=== PATIENT | female | born 1995 | race Two or more races ===

== ENCOUNTER 2021-05-13 16:31 | Emergency (ER) | payer OTHER ==
[~2021-05-13] VITALS: Ht 157.5 cm; Wt 54.4 kg
== END 2021-05-13 22:41 | disposition home or self-care (01) ==
LOC: ER 16:31
DX: O20.8 Other hemorrhage in early pregnancy (principal); Z3A.01 Less than 8 weeks gestation of pregnancy; Z37.0 Single live birth

== ENCOUNTER 2021-10-20 14:38 | Outpatient (CLI) | payer OTHER ==
[2021-10-20] MEDS ORDERED: INTEGRA PLUS C1 EACH PO (15:41)
[2021-10-20] MEDS ORDERED: PRENATAL MULTI1 EAC3 PO (15:42)
== END 2021-10-20 19:16 | disposition home or self-care (01) ==
LOC: OBS/DEL 14:38
PROVIDERS: ATTEND Specialist
DX: O26.893 Other specified pregnancy related conditions, third trimester (principal); Z3A.30 30 weeks gestation of pregnancy; K59.00 Constipation, unspecified

== ENCOUNTER 2021-12-16 01:44 | Outpatient (CLI) | payer OTHER ==
[~2021-12-16] VITALS: Ht 165.1 cm; Wt 11.3 kg
[~2021-12-16 01:44] MED LIST: INTEGRA PLUS C1 EACH PO; PRENATAL MULTI1 EAC3 PO
== END 2021-12-16 13:52 | disposition home or self-care (01) ==
LOC: OBS/DEL 01:44
PROVIDERS: ATTEND Specialist
DX: O26.893 Other specified pregnancy related conditions, third trimester (principal); Z3A.38 38 weeks gestation of pregnancy; N89.8 Other specified noninflammatory disorders of vagina